=== PATIENT | female | born 2000 | race Caucasian/White ===

== ENCOUNTER 2019-08-02 13:31 | Emergency (ER) | payer OTHER ==
--- NOTE | 2019-08-02 13:37 | ED ---
Abdominal Pain/Female - History of Current Complaint Chief Complaint: EDAbdPain Stated Complaint: ABDOMINAL PAIN PER PT Time Seen by Provider: 08/02/19 13:33 Pain Intensity: 7 Allergies/Adverse Reactions: Allergies Allergy/AdvReac Type Severity Reaction Status Date / Time No Known Allergies Allergy Verified 08/02/19 13:36 PMH/Surg Hx/FS Hx/Imm Hx Infectious Disease History: No Infectious Disease History: Denies: Traveled Outside the [place] in Last 30 Days Physical Exam Vital Signs On Initial Exam: Initial Vitals Temp Pulse Resp BP Pulse Ox 97.7 F 96 16 133/81 99 08/02/19 13:33 08/02/19 13:33 08/02/19 13:33 08/02/19 13:33 08/02/19 13:33 Diagnostics - Vital Signs Vital Signs Temp Pulse Resp BP Pulse Ox 08/02/19 13:33 97.7 F 96 16 133/81 99 - Laboratory Lab Statement: Any lab studies that have been ordered have been reviewed, and results considered in the medical decision making process.
--- NOTE | 2019-08-02 13:53 | ED ---
Abdominal Pain/Female - HPI Summary HPI Summary: The patient is a 18 y/o F presenting to [facility] accompanied by male core composer feeder with a chief complaint of sudden onset right lower quadrant and right flank pain onset three days ago. She reports she had been urinating as normal when the abdominal pain suddenly began. She denies any fevers, nausea, or vomiting with the pain. Currently, the pain is rated 6/10 in severity, but it is aggravated by position specifically if she is sitting upright. She states that this episode is similar to a previous experience she has had where she had an ovarian torsion on the left, but she does note a known right ovarian cyst that has burst before. LNMP: now. PMHx: PCOS, left ovarian torsion with repair. FHx: breast cancer, cardiac disease. Nonsmoker, occasional EtOH, no substance use. Medications reviewed. Allergies noted. - History of Current Complaint Chief Complaint: EDAbdPain Stated Complaint: ABDOMINAL PAIN PER PT Time Seen by Provider: 08/02/19 13:33 Hx Obtained From: Patient Onset/Duration: Sudden Onset, Lasting Days - three, Still Present Timing: Constant Severity Initially: Moderate Severity Currently: Moderate Pain Intensity: 6 Pain Scale Used: 0-10 Numeric Location: Discrete At: RLQ Radiates: Yes Radiates to: Flank - right Character: Sharp Aggravating Factor(s): Other: - positional in sitting upright Alleviating Factor(s): Nothing Associated Signs and Symptoms: Negative: Fever, Nausea, Vomiting Allergies/Adverse Reactions: Allergies Allergy/AdvReac Type Severity Reaction Status Date / Time No Known Allergies Allergy Verified 08/02/19 13:36 PMH/Surg Hx/FS Hx/Imm Hx Endocrine/Hematology History: Denies: Hx Diabetes Cardiovascular History: Denies: Hx Hypercholesterolemia, Hx Hypertension History: Reports: Other Problems/Disorders - ovarian cyst on right, ovarian torsion on left Sensory History: Reports: Hx Contacts or Glasses Opthamlomology History: Reports: Hx Contacts or Glasses - Surgical History Surgical History: Yes Surgery Procedure, Year, and Place: left ovarian torsion repair Infectious Disease History: No Infectious Disease History: Denies: Traveled Outside the [place] in Last 30 Days - Family History Known Family History: Positive: Cardiac Disease, Other - breast cancer - Social History Alcohol Use: Occasionally Hx Substance Use: No Substance Use Type: Reports: None Hx Tobacco Use: No Smoking Status (MU): Never Smoked Tobacco Review of Systems Negative: Fever Positive: Abdominal Pain - right lower quadrant into flank. Negative: Vomiting , Nausea All Other Systems Reviewed And Are Negative: Yes Physical Exam - Summary Physical Exam Summary: VITAL SIGNS: Reviewed. GENERAL: Patient is a well-developed and nourished female who is lying comfortable in the stretcher. Patient is not in any acute respiratory distress. HEAD AND FACE: Normocephalic and atraumatic. EYES: PERRLA, EOMI x 2, No injected conjunctiva. EARS: Hearing grossly intact. Ear canals and tympanic membranes are WNL. MOUTH: Oropharynx within normal limits. NECK: Supple, trachea is midline, no adenopathy, no JVD. CHEST: Symmetric, no tenderness at palpation. LUNGS: Clear to auscultation bilaterally. No wheezing or crackles. CVS: RRR, S1 and S2 present, no murmurs or gallops appreciated. ABDOMEN: Soft, mild right lower quadrant tenderness. No signs of distention. Positive bowel sounds. No rebound, no guarding, and no masses palpated. No abdominal bruit or pulsations. EXTREMITIES: FROM in all major joints, no edema, no cyanosis or clubbing. NEURO: Alert and oriented x 3. No acute neurological deficits. Speech is normal. SKIN: Dry and warm. Triage Information Reviewed: Yes Vital Signs On Initial Exam: Initial Vitals Temp Pulse Resp BP Pulse Ox 97.7 F 96 16 133/81 99 08/02/19 13:33 08/02/19 13:33 08/02/19 13:33 08/02/19 13:33 08/02/19 13:33 Vital Signs Reviewed: Yes Procedures - Sedation Patient Received Moderate/Deep Sedation with Procedure: No Diagnostics - Vital Signs Vital Signs Temp Pulse Resp BP Pulse Ox 08/02/19 13:33 97.7 F 96 16 133/81 99 - Laboratory Result Diagrams: 08/02/19 14:07 08/02/19 14:07 Lab Statement: Any lab studies that have been ordered have been reviewed, and results considered in the medical decision making process. - Ultrasound Pelvis US Ultrasound Interpretation Completed By: Radiologist Summary of Ultrasound Findings: Impression: 1. Trace free fluid in the pelvis. 2. Ovarian doppler signal detected bilaterally. ED physician has reviewed this report. Re-Evaluation - Re-Evaluation First Eval Re-Evaluation Time: 15:50 Change: Improved Comment: She is feeling better after medications. Second Eval Re-Evaluation Time: 17:15 Change: Improved Comment: She is feeling better. We discussed all results and plan for discharge. Abdominal Pain Fem Course/Dx - Course Course Of Treatment: This patient is a 18-year-old female who presents to the emergency department with a complaint of right sided pelvic pain. She reports that she has a history of ovarian cysts, and she feels that one of the cysts ruptured on 07/30/19, and since then the patient has been having pain. She reports that the pain is similar to previous cyst ruptures. Blood work without any significant abnormality. Beta-hCG is negative for . Pelvic ultrasound impression: Trace free fluid in the pelvis. Ovarian Doppler signals detected bilaterally. In the ED course, the patient was given Toradol for the pain. After these medications, the patients pain has significantly improved. Patient declined a pelvic exam. Patient has no WBCs, and CRP is also normal. Therefore, I have low suspicion for appendicitis. I discussed all the findings and test results with the patient. Patient was instructed to return to the emergency room immediately if any of the symptoms return or worsen. They were explained the possibility of an early abdominal pathology which was not detected at this time despite the physical exam and testing. They understand and agree. Abdominal exam before discharge: Soft, NT. No signs of distention. BS present. No rebound, no guarding, and no masses palpated. Patient is alert and oriented and hemodynamically stable. Patient is to follow up with primary care physician in the next 2 to 3 days. Patient agrees and understands. - Diagnoses Provider Diagnoses: Pelvic pain Discharge ED - Sign-Out/Discharge Documenting (check all that apply): Patient Departure - Patient will be discharged home. - Discharge Plan Condition: Stable Disposition: HOME Patient Education Materials: Acute Abdominal Pain (ED) Referrals: [facility] [place] PHYSICIAN REFERRAL [Outside] - 3 Days Teresa Schrader MD [Medical Doctor] - 3 Days Additional Instructions: Follow up with your INTERNET DEVELOPER in 2-3 days concerning today's visit. Follow up with your primary care provider in 2-3 days. Return to the emergency department for any new or worsening symptoms. - Billing Disposition and Condition Condition: STABLE Disposition: Home - Attestation Statements Document Initiated by Scribe: Yes Documenting Scribe: Roma Jorge Provider For Whom Scribe is Documenting (Include Credential): Dr. Nam Roy MD Scribe Attestation: I, Roma Jorge, scribed for Dr. Nam Roy MD on 08/03/19 at 0941. Scribe Documentation Reviewed: Yes Provider Attestation: The documentation as recorded by the Roma duong accurately reflects the service I personally performed and the decisions made by me, Dr. Nam Roy MD Status of Scribe Document: Viewed
[2019-08-02 14:15] LABS: ABS Basophils 0.1 10^3/ul (0-0.2); ABS Eosinophils 0.1 10^3/ul (0-0.6); ABS Lymphocytes 0.9 10^3/ul (1.0-4.8); ABS Monocytes 0.4 10^3/ul (0-0.8); ABS Neutrophils 4.5 10^3/ul (1.5-7.7); Eosinophil % 1.2 %; Hematocrit 41 % (35-47); Hemoglobin 14.2 g/dL (12.0-16.0); Mean Corpuscular HGB Conc 35 g/dL (31-36); Mean Corpuscular Hemoglobin 32 pg (27-31); Mean Corpuscular Volume 94 fL (80-97); Mean Platelet Volume 8.4 fL (7.4-10.4); Platelet Count 296 10^3/uL (150-450); Red Blood Count 4.41 10^6 /uL (3.70-4.87); Red Cell Distribution Width 13 % (10-15); White Blood Count 5.9 10^3/uL (3.5-10.8)
[2019-08-02 14:46] LABS: ALT 13 U/L (7-52); AST 17 U/L (13-39); Albumin 4.1 g/dL (3.2-5.2); Albumin/Globulin Ratio 1.5 (1-3); Alkaline Phosphatase 45 U/L (34-104); Anion Gap 6 mmol/L (2-11); BUN/Creatinine Ratio 15.5 (8-20); Blood Urea Nitrogen 11 mg/dL (6-24); C Reactive Protein 4.22 mg/L (<8.01); CO2 Carbon Dioxide 28 mmol/L (22-32); Calcium 9.5 mg/dL (8.6-10.3); Chloride 104 mmol/L (101-111); Globulin 2.8 g/dL (2-4); Glucose 94 mg/dL (70-100); Sodium 138 mmol/L (135-145); Total Protein 6.9 g/dL (6.4-8.9)
[2019-08-02 14:52] LABS: HCG Pregnancy < 0.60 mIU/mL
[2019-08-02] MEDS ORDERED: Ketorolac INJ* 30 MG/ML 1 ML VIAL IV PUSH ONE (15:41)
[2019-08-02] MEDS ORDERED: Ketorolac *IM* INJ* 60 MG/2 ML VIAL IM ONE (17:00)
[2019-08-02 17:25] VITALS: BP 121/78
== END 2019-08-02 17:33 | disposition home or self-care (01) ==
LOC: ED 13:31
DX: R10.2 Pelvic and perineal pain (principal)
CPT/HCPCS: 36415; 76856; 80053; 83605; 83690; 84702; 85025; 86140; 96372; 99282; J1885

== ENCOUNTER 2019-10-06 09:23 | Emergency (ER) | payer OTHER ==
[2019-10-06] MEDS ORDERED: Ondansetron INJ* 2 MG/ML VIAL IV ONE ×2 (10:01→13:25)
[2019-10-06] MEDS ORDERED: NS 0.9% 1000 ML** 1,000 ML IV ONE (10:01)
[2019-10-06] MEDS ORDERED: Morphine 4 MG/ML VIAL (1 ml) 4 MG/ML VIAL IV ONE ×3 (10:01→13:25)
--- NOTE | 2019-10-06 10:08 | ED ---
Abdominal Pain/Female - HPI Summary HPI Summary: 18-year-old female with a significant past medical history of ovarian cyst and ovarian torsion presents to emergency department today complaining of sudden onset right lower quadrant pain which radiates to her back which began as she was lying in bed yesterday. Patient states her pain began yesterday evening for which she took Tylenol and ibuprofen with minimal relief. Patient states since her pain began yesterday and has become worse and is currently 9 out of 10. Patient denies associated fever, vaginal bleeding, vaginal discharge, nausea, vomiting, diarrhea, pain with urination, abnormal menses. Last menstrual period x one week ago and regular. Patient otherwise feels well and denies any family history of kidney stones or personal history of kidney stones. Surgical and family history is noncontributory. - History of Current Complaint Chief Complaint: EDAbdPain Stated Complaint: SEVERE ABDOMINAL PAIN PER PT Time Seen by Provider: 10/06/19 09:53 Hx Obtained From: Patient Onset/Duration: Sudden Onset Timing: Constant Severity Initially: Moderate Severity Currently: Severe Pain Intensity: 8 Pain Scale Used: 0-10 Numeric Location: Discrete At: RLQ Radiates: Yes Radiates to: Flank Character: Sharp, Cramping Alleviating Factor(s): Position, OTC Analgesics Associated Signs and Symptoms: Positive: Back Pain. Negative: Diaphoresis, Fever, Cough, Chest Pain, Constipation, Blood in Stool, Urinary Symptoms, Vaginal Bleeding, Vaginal Discharge, Nausea, Vomiting, Diarrhea Allergies/Adverse Reactions: Allergies Allergy/AdvReac Type Severity Reaction Status Date / Time No Known Allergies Allergy Verified 10/06/19 10:00 Home Medications: Home Medications Levonorgestrel-Ethin Estradiol [Sronyx] 1 tab PO DAILY 10/06/19 [History Confirmed 10/06/19] PMH/Surg Hx/FS Hx/Imm Hx Endocrine/Hematology History: Denies: Hx Diabetes Cardiovascular History: Denies: Hx Hypercholesterolemia, Hx Hypertension History: Reports: Other Problems/Disorders - ovarian cyst on right, ovarian torsion on left Sensory History: Reports: Hx Contacts or Glasses Opthamlomology History: Reports: Hx Contacts or Glasses - Surgical History Surgery Procedure, Year, and Place: left ovarian torsion repair - Immunization History Immunizations Up to Date: Yes Infectious Disease History: No Infectious Disease History: Denies: Traveled Outside the [place] in Last 30 Days - Family History Known Family History: Positive: Cardiac Disease, Other - breast cancer - Social History Alcohol Use: Occasionally Hx Substance Use: No Substance Use Type: Reports: None Hx Tobacco Use: No Smoking Status (MU): Never Smoked Tobacco Review of Systems Constitutional: Negative Eyes: Negative ENT: Negative Cardiovascular: Negative Respiratory: Negative Positive: Abdominal Pain. Negative: Vomiting, Diarrhea, Nausea Genitourinary: Negative Musculoskeletal: Negative Skin: Negative Neurological: Negative Psychological: Normal All Other Systems Reviewed And Are Negative: Yes Physical Exam - Summary Physical Exam Summary: Patient is in no acute distress. Inspection the abdomen reveals no ecchymosis or masses. Auscultation reveals normoactive bowel sounds. Palpation of the abdomen reveals tenderness in the right lower quadrant. There is pain at McBurney's point. Negative Ruth's, psoas, obturator, Rovsing sign. Negative CVA tenderness. No rigidity or rebound tenderness is noted. No peritoneal signs. Patient tolerated the exam well. Triage Information Reviewed: Yes Vital Signs On Initial Exam: Initial Vitals Temp Pulse Resp BP Pulse Ox 98.6 F 111 18 133/85 97 10/06/19 09:26 10/06/19 09:26 10/06/19 09:26 10/06/19 09:26 10/06/19 09:26 Vital Signs Reviewed: Yes Appearance: Positive: Well-Appearing, No Pain Distress, Well-Nourished Skin: Positive: Warm, Skin Color Reflects Adequate Perfusion Procedures - Sedation Patient Received Moderate/Deep Sedation with Procedure: No Diagnostics - Vital Signs Vital Signs Temp Pulse Resp BP Pulse Ox 10/06/19 09:52 103 135/86 95 10/06/19 09:51 101 95 10/06/19 09:26 98.6 F 111 18 133/85 97 - Laboratory Result Diagrams: 10/06/19 10:07 10/06/19 10:07 Lab Statement: Any lab studies that have been ordered have been reviewed, and results considered in the medical decision making process. Abdominal Pain Fem Course/Dx - Course Course Of Treatment: Patient was evaluated in the emergency department today for right lower quadrant abdominal pain. Vitals noted and stable. Patient afebrile. Labs returned showing mild leukocytosis with awhite blood cell count 11.8 with a neutrophilic shift. There are no significant electrolyte abnormalities or evidence of anemia. test negative. Urinalysis appears contaminated. patient was given 3 doses of 4 mg of morphine for pain . An ultrasound of the appendix was done which was unable to visualize the appendix. Transvaginal ultrasound was done to evaluate possible ovarian torsion versus ovarian cyst which showed: although bilateral ovarian Doppler signals detected, the right ovary is enlarged and slightly heterogeneous in appearance. Intermittent torsion is not excluded in this high-risk patient. CT of the abdomen and pelvis was done which shows no evidence of appendicitis however there is a noted right greater than left ovarian volume asymmetry. OB/ PRINCIPAL PLANNER, Dr. Schrader was consulted at 1155 and agreed to come and evaluate the patient in the emergency department. Dr. Schrader presented to the emergency department at 1530 and examined the patient. She believed it is likely the patient is not experiencing intermittent torsion however she may be experiencing symptoms of a ruptured ovarian cyst. She instructed the patient to be discharged to follow-up with Dr. Schrader in her office in 2-3 days as an outpatient. - Diagnoses Differential Diagnosis: Positive: Appendicitis, Ectopic , Ovarian Cyst , Pelvic Inflammatory Disease, Other - Ovarian torsion, intermittent ovarian torsion. Provider Diagnoses: Abdominal pain, Ruptured ovarian cyst - Provider Notifications Discussed Care Of Patient With: Teresa Schrader - presented to the emergency department at 1530 to evaluate the patient. Believed the patient's symptoms are likely due to a ruptured ovarian cyst and not intermittent ovarian torsion. She agreed to see the patient in her office as an outpatient in 2-3 days. Time Discussed With Above Provider: 11:55 Discharge ED - Sign-Out/Discharge Documenting (check all that apply): Patient Departure - Discharge Plan Condition: Stable Disposition: HOME Patient Education Materials: Ruptured Ovarian Cyst (ED) Referrals: Teresa Schrader MD [Medical Doctor] - 2 Days No Primary Care Phys,[facility] [Primary Care Provider] - Additional Instructions: You were seen in the emergency department today due to right lower quadrant pain. An ultrasound as well as a CT scan were done which showed no evidence of ovarian torsion or appendicitis. It is likely your symptoms are due to a ruptured ovarian cyst. Due to the fact that this still may be intermittent torsion of the ovary please see Dr. Schrader in her office in 2-3 days for further evaluation and management. Please return to the emergency department immediately if you develop any new or worsening symptoms. You may take ibuprofen 600 mg every 6 hours as needed for pain. You may alternate this with Tylenol 650 mg every 6 hours as needed for pain. - Billing Disposition and Condition Condition: STABLE Disposition: Home
[2019-10-06 10:15] LABS: ABS Lymphocytes 0.7 10^3/ul (1.0-4.8); ABS Monocytes 0.1 10^3/ul (0-0.8); ABS Neutrophils 10.9 10^3/ul (1.5-7.7); Eosinophil % 0.2 %; Hematocrit 41 % (35-47); Hemoglobin 14.1 g/dL (12.0-16.0); Lymphocyte % 5.9 %; Mean Corpuscular HGB Conc 35 g/dL (31-36); Mean Corpuscular Hemoglobin 32 pg (27-31); Mean Corpuscular Volume 93 fL (80-97); Mean Platelet Volume 8.7 fL (7.4-10.4); Platelet Count 306 10^3/uL (150-450); Red Blood Count 4.37 10^6 /uL (3.70-4.87); Red Cell Distribution Width 13 % (10-15); White Blood Count 11.8 10^3/uL (3.5-10.8)
[2019-10-06 10:37] LABS: ALT 13 U/L (7-52); AST 18 U/L (13-39); Albumin 4.5 g/dL (3.2-5.2); Albumin/Globulin Ratio 1.5 (1-3); Alkaline Phosphatase 60 U/L (34-104); Anion Gap 8 mmol/L (2-11); BUN/Creatinine Ratio 18.5 (8-20); Blood Urea Nitrogen 12 mg/dL (6-24); C Reactive Protein 6.38 mg/L (<8.01); CO2 Carbon Dioxide 26 mmol/L (22-32); Calcium 9.4 mg/dL (8.6-10.3); Chloride 102 mmol/L (101-111); EGFR African American 140.6 (>60); EGFR Non-African American 116.2 (>60); Glucose 118 mg/dL (70-100); Potassium 3.6 mmol/L (3.5-5.0); Sodium 136 mmol/L (135-145); Total Protein 7.5 g/dL (6.4-8.9)
[2019-10-06 10:44] LABS: HCG Pregnancy < 0.60 mIU/mL
[2019-10-06] MEDS ORDERED: Iohexol 300* (CONTRAST) 10 ML SDV IV ONE (11:24)
[2019-10-06 15:58] LABS: Urine Appearance Clear; Urine Bilirubin Negative (Negative); Urine Blood 1+ (Negative); Urine Color Straw; Urine Glucose Negative (Negative); Urine Ketones 1+ (Negative); Urine Nitrite Negative (Negative); Urine Protein Negative (Negative); Urine Specific Gravity 1.034 (1.010-1.030); Urine Urobilinogen Negative (Negative)
[2019-10-06 16:07] LABS: Urine Bacteria Absent (Absent); Urine Red Blood Cell 1+(3-5/hpf) (Absent); Urine Squamous Epithelial Cell Present (Absent); Urine White Blood Cell Absent (Absent)
[2019-10-06 16:21] VITALS: BP 123/82
--- NOTE | 2019-10-06 20:18 | CONS ---
CONSULTATION REPORT: DATE OF CONSULT: 10/06/19 - EMERGENCY DEPT REASON FOR CONSULT: Right lower quadrant pain. HISTORY OF PRESENT ILLNESS: The patient is a 18-year-old 0, who comes in with less than 24 hours of right lower quadrant pain. The patient reports history of intermittent right lower quadrant pain and in fact was seen in August of 2019 with similar complaint. The patient has history of ruptured ovarian cyst and approximately 3 years ago had an episode of ovarian torsion, required surgery and at that point had her ovary tagged down to the peritoneum to prevent re-torsion. The patient has a history of polycystic ovarian syndrome and for this takes an oral contraceptive combination pill. The patient notes that she did miss a dosing of her oral contraceptive therapy. On pelvic ultrasound today, the right and left ovaries are consistent with polycystic ovaries. They have adequate blood flow and both normal arterial and venous waveforms. A CT scan was performed in addition, which showed a normal- appearing appendix. The patient notes that at present her pain has reduced in severity and denies any nausea, vomiting, or dysuria at present. PAST MEDICAL HISTORY: Noted for polycystic ovarian syndrome. PAST SURGICAL HISTORY: In 2017, had a laparoscopic right ovarian torsion reduction and tagging of the right ovary to the parietal peritoneum. 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 Current partner x1 plus year, stable monogamous. REVIEW OF SYSTEMS: Negative for fevers. Positive for anorexia. Negative for weight change. : Denies abnormal discharge. Denies current menstrual flow. Positive sexual activity, but denies any change in partners. GI: No diarrhea. No constipation. No change in bowel habits. PHYSICAL EXAM: Vital Signs: Temp 98.6, blood pressure 123/82, pulse 79, respiratory rate 20. Constitutional: Pleasant female, alert and oriented, in no apparent distress. HEENT: Supple, nontender. No masses. No adenopathy. Abdomen is nontender. No masses. No hepatosplenomegaly appreciated. No rebound and no guarding. Extremities are nontender. No edema. Pelvic Exam: External genitalia with normal appearance. Vaginal Exam: Normally palpated mucosa. Bimanual Exam: No cervical motion tenderness. Uterus is anteverted, nontender. Adnexa without masses and nontender. LABORATORY DATA: WBC 11.8, hemoglobin 14.1, hematocrit 41, platelet count 306. Urine specific gravity is 1.034, urine ketones +1, blood +1, negative nitrites, negative leukocyte, squamous epithelial cells present, bacteria absent. Chemistries: AST and ALT 18 and 13, creatinine 0.625, glucose 118. Beta quant is less than 0.6. ASSESSMENT AND PLAN: The patient is a 18-year-old with acute onset of right lower quadrant pain that has improved with IV morphine and time. The patient has normal imaging both ultrasound and CT scan imaging and no evidence of an acute abdomen. Clinically, at this point, I recommend observation. The patient can use ibuprofen for anti-inflammatory effect and if the patient has recurrent abdominal pain, she is to return to the emergency room. We reviewed acute abdomen precautions and in the meantime, we will obtain old records from operative procedure in 2017. The patient will need followup in 1 week's time with my office and will be contacted by my office for this followup plan. [id number]/CPS #: [id number] RG
== END 2019-10-06 16:19 | disposition home or self-care (01) ==
LOC: ED 09:23
DX: R10.31 Right lower quadrant pain (principal); E28.2 Polycystic ovarian syndrome; J98.11 Atelectasis
CPT/HCPCS: 36415; 74177; 76705; 76830; 80053; 81003; 81015; 83690; 84702; 85025; 86140; 96361; 96374; 96375; 96376; 99283; J2270; J2405; Q9967

== ENCOUNTER 2019-10-08 13:12 | Observation (INO) | payer OTHER ==
[2019-10-08] MEDS ORDERED: NS 0.9% 1000 ML** 1,000 ML IV ONE (16:47)
[2019-10-08] MEDS ORDERED: Morphine 4 MG/ML VIAL (1 ml) 4 MG/ML VIAL IV ONE (16:48)
--- NOTE | 2019-10-08 16:52 | ED ---
GI/ HPI - HPI Summary HPI Summary: 18 year old female presents with abd pain for the past 3 days. She was seen here 2 days ago and was told that she has likely ruptured cyst. She has history of ovarian torsion on the right side and had the ovary sutured down per patient. she states that pain is similar to ovarian torsion in past. Pain has been intermittent but has only slightly decreased in intensity. she states she is not able to ambulate due to the pain. She states it radiates down her leg. she admits to a decrease in appetite. She admits to nausea but no vomiting. She denies any fevers. No vaginal discharge. She is on control. Has history of a PCOS. No previous abdominal surgeries besides ovarian torsion. Was seen by OB and felt that was a ruptured cyst. - History of Current Complaint Chief Complaint: EDAbdPain Time Seen by Provider: 10/08/19 16:41 Stated Complaint: RIGHT LOWER ABD PAIN PER PT Pain Intensity: 8 - Allergy/Home Medications Allergies/Adverse Reactions: Allergies Allergy/AdvReac Type Severity Reaction Status Date / Time No Known Allergies Allergy Verified 10/06/19 10:00 PMH/Surg Hx/FS Hx/Imm Hx Endocrine/Hematology History: Denies: Hx Diabetes Cardiovascular History: Denies: Hx Hypercholesterolemia, Hx Hypertension History: Reports: Other Problems/Disorders - ovarian cyst on right, ovarian torsion on left Denies: Hx Renal Disease Sensory History: Reports: Hx Contacts or Glasses Opthamlomology History: Reports: Hx Contacts or Glasses - Surgical History Surgery Procedure, Year, and Place: left ovarian torsion repair Infectious Disease History: No Infectious Disease History: Denies: Traveled Outside the [place] in Last 30 Days - Family History Known Family History: Positive: Cardiac Disease, Other - breast cancer - Social History Alcohol Use: Occasionally Hx Substance Use: No Substance Use Type: Reports: None Hx Tobacco Use: No Smoking Status (MU): Never Smoked Tobacco Review of Systems Negative: Fever Negative: Chest Pain Negative: Shortness Of Breath Positive: Abdominal Pain All Other Systems Reviewed And Are Negative: Yes Physical Exam Triage Information Reviewed: Yes Vital Signs On Initial Exam: Initial Vitals Temp Pulse Resp BP Pulse Ox 98.1 F 119 16 124/83 99 10/08/19 13:44 10/08/19 13:44 10/08/19 13:44 10/08/19 13:44 10/08/19 13:44 Vital Signs Reviewed: Yes Appearance: Positive: Well-Appearing Skin: Positive: Warm, Dry Head/Face: Positive: Normal Head/Face Inspection Eyes: Positive: Normal, Conjunctiva Clear ENT: Positive: Pharynx normal Respiratory/Lung Sounds: Positive: Clear to Auscultation, Breath Sounds Present Cardiovascular: Positive: Normal, RRR Abdomen Description: Positive: Soft, Other: - tenderness in RLQ Bowel Sounds: Positive: Present Musculoskeletal: Positive: Normal Neurological: Positive: Normal Psychiatric: Positive: Normal Procedures - Sedation Patient Received Moderate/Deep Sedation with Procedure: No Diagnostics - Vital Signs Vital Signs Temp Pulse Resp BP Pulse Ox 10/08/19 13:44 98.1 F 119 16 124/83 99 - Laboratory Result Diagrams: 10/08/19 17:01 10/08/19 17:01 Lab Statement: Any lab studies that have been ordered have been reviewed, and results considered in the medical decision making process. - Ultrasound No standard instances Ultrasound Interpretation Completed By: Radiologist Summary of Ultrasound Findings: IMPRESSION: 1. THE RIGHT OVARY IS ENLARGED AND EDEMATOUS WITHOUT APPRECIABLE FLOW ON COLOR SPECTRAL DOPPLER IMAGING, CONCERNING FOR RIGHT OVARIAN TORSION GIVEN THE CLINICAL HISTORY OF PAIN. PRELIMINARY FINDINGS WERE DISCUSSED WITH YOLY ARNOLD THE EMERGENCY DEPARTMENT AT APPROXIMATELY 5:44 PM ON OCTOBER 08, 2019. 2. BILATERAL PARAOVARIAN CYST. 3. THERE ARE MULTIPLE FOLLICLES IN THE PERIPHERY OF THE LEFT OVARY. THE DISTRIBUTION, WHILE NONSPECIFIC, THEY'RE SUGGESTIVE OF POLYCYSTIC OVARIAN SYNDROME IN THE CORRECT CLINICAL SETTING. GIGU Course/Dx - Course Course Of Treatment: 18 year old female presents with abd pain for the past 3 days. She was seen here 2 days ago and was told that she has likely ruptured cyst. She has history of ovarian torsion on the right side and had the ovary sutured down per patient. she states that pain is similar to ovarian torsion in past. Pain has been intermittent but has only slightly decreased in intensity. she states she is not able to ambulate due to the pain. She states it radiates down her leg. she admits to a decrease in appetite. She admits to nausea but no vomiting. She denies any fevers. No vaginal discharge. She is on control. Has history of a PCOS. No previous abdominal surgeries besides ovarian torsion. Was seen by OB and felt that was a ruptured cyst. On exam tenderness in RLQ. No rebound. wbc 16. u/s shows ovarian torison. dr campa will take to OR. - Diagnoses Differential Diagnoses - Female: Ovarian Cyst, Ovarian Torsion, Urinary Tract Infection Provider Diagnoses: Ovarian torsion Discharge ED - Sign-Out/Discharge Documenting (check all that apply): Patient Departure - Discharge Plan Condition: Stable Disposition: ADMITTED TO [facility] Referrals: No Primary Care Phys,NOPCP [Primary Care Provider] - - Billing Disposition and Condition Condition: STABLE Disposition: Admitted to [facility]
[2019-10-08 17:12] LABS: ABS Basophils 0.1 10^3/ul (0-0.2); ABS Lymphocytes 1.1 10^3/ul (1.0-4.8); ABS Monocytes 1.1 10^3/ul (0-0.8); ABS Neutrophils 13.9 10^3/ul (1.5-7.7); Eosinophil % 0.3 %; Hematocrit 41 % (35-47); Lymphocyte % 6.9 %; Mean Corpuscular HGB Conc 34 g/dL (31-36); Mean Corpuscular Hemoglobin 32 pg (27-31); Mean Corpuscular Volume 94 fL (80-97); Mean Platelet Volume 8.6 fL (7.4-10.4); Nucleated Red Blood Cells % 0.1; Platelet Count 306 10^3/uL (150-450); Red Blood Count 4.37 10^6 /uL (3.70-4.87); Red Cell Distribution Width 13 % (10-15); White Blood Count 16.2 10^3/uL (3.5-10.8)
[2019-10-08 17:27] LABS: Albumin 4.5 g/dL (3.2-5.2); Albumin/Globulin Ratio 1.6 (1-3); BUN/Creatinine Ratio 12.3 (8-20); C Reactive Protein 65.5 mg/L (<8.01); Calcium 9.6 mg/dL (8.6-10.3); EGFR African American 140.6 (>60); EGFR Non-African American 116.2 (>60); Globulin 2.9 g/dL (2-4); Potassium 3.7 mmol/L (3.5-5.0); Total Bilirubin 0.8 mg/dL (0.2-1.0); Total Protein 7.4 g/dL (6.4-8.9)
[2019-10-08] MEDS ORDERED: Sodium Citrate/Citric Acid* 15 ML UDC PO ONE (18:38)
[2019-10-08] MEDS ORDERED: Dexamethasone IV* 4 MG/ML 1 ML (4 MG) IV SLOW PU ONE (18:38)
[2019-10-08] MEDS ORDERED: Buffered Lidocaine 1% SYRIN* 1 ML/SYRINGE INTRADERM ONE (18:38)
[2019-10-08] MEDS ORDERED: Famotidine IV* 10 MG/ML 2 ML (20 mg) IV ONE (18:38)
[2019-10-08 18:42] LABS: Urine Appearance Clear; Urine Bilirubin Negative (Negative); Urine Blood 1+ (Negative); Urine Color Yellow; Urine Glucose Negative (Negative); Urine Ketones 2+ (Negative); Urine Nitrite Negative (Negative); Urine Protein Negative (Negative); Urine Specific Gravity 1.009 (1.010-1.030); Urine Urobilinogen Negative (Negative)
[2019-10-08 18:43] LABS: Urine Bacteria Absent (Absent); Urine Red Blood Cell 1+(3-5/hpf) (Absent); Urine Squamous Epithelial Cell Present (Absent); Urine White Blood Cell Absent (Absent)
[2019-10-08] MEDS ORDERED: Ketorolac INJ* 30 MG/ML 1 ML VIAL IV PRN ×2 (18:43→21:54)
[2019-10-08] MEDS ORDERED: Naloxone* 0.4 MG/ML 1 ML VIAL IV PRN ×2 (18:43→21:54)
[2019-10-08] MEDS ORDERED: oxyCODONE/Acetamin 5/325 MG* TAB PO PRN ×2 (18:43→21:54)
[2019-10-08] MEDS ORDERED: DiMENhydriNATE IV* 50 MG/ML VIAL IV PUSH PRN ×2 (18:43→21:54)
[2019-10-08] MEDS ORDERED: fentaNYL* 50 MCG/ML 2 ML VIAL (100 MCG VIAL) IV PRN ×2 (18:43→21:54)
[2019-10-08] MEDS ORDERED: HYDROcodone/ACETAMIN 5-325 MG* 1 TAB PO PRN ×2 (18:43→21:54)
[2019-10-08] MEDS ORDERED: Bupivacaine 0.25% SDV* 30 ML ONE (18:46)
[2019-10-08] MEDS ORDERED: Lactated Ringers 1000 ML Bag* 1,000 ML IV SCH (19:00)
--- NOTE | 2019-10-08 19:01 | HP ---
H&P (Free Text) History and Physical: Pt was seen in the ED 2 days ago with RLQ pain and her ovary was slightly enlarged but with positive blood flow and similar to prior sono in August. By the time of discharge her pain had also improved. Since then the pain has returned and been more constant. It continues to be in the RLQ. it is severe enough she feels she can't walk as it shoots down her legs. She has a h/o PCOS with ruptured ovarian cysts and R ovarian torsion with surgery to reduce the ovarian torsion and "tack" it to the abdominal wall about 3yrs ago. She reports minimal appetite over the past few days and minimal nausea. Meds: oral contraceptives NKDA ROS: +pain, no bleeding, no unusual discharge, no dysuria, +nausea, no vomiting , no diarrhea or constipation, decreased appetite. Otherwise negative. 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 Monogamous relationship with same partner >1yr. Denies hx STIs Soc Hx: Denies tobacco or illicit drug use. Occasional alcohol use. Here for college, lives in the dorm. Exam: Appears in mild painful distress Abd: soft, moderate tenderness with guarding in RLQ, palpation of LLQ elicits pain in RLQ Ext: no edema Pelvic exam declined Laboratory Results - last 24 hr 10/08/19 10/08/19 10/08/19 17:01 17:01 17:01 WBC 16.2 H RBC 4.37 Hgb 14.0 Hct 41 MCV 94 MCH 32 H MCHC 34 RDW 13 Plt Count 306 MPV 8.6 Neut % (Auto) 85.6 Lymph % (Auto) 6.9 Lynn % (Auto) 6.8 Eos % (Auto) 0.3 Baso % (Auto) 0.4 Absolute Neuts (auto) 13.9 H Absolute Lymphs (auto) 1.1 Absolute Monos (auto) 1.1 H Absolute Eos (auto) 0.0 Absolute Basos (auto) 0.1 Absolute Nucleated RBC 0.0 Nucleated RBC % 0.1 Sodium 137 Potassium 3.7 Chloride 102 Carbon Dioxide 25 Anion Gap 10 BUN 8 Creatinine 0.65 Est GFR ( Amer) 140.6 Est GFR (Non-Af Amer) 116.2 BUN/Creatinine Ratio 12.3 Glucose 87 Lactic Acid 0.9 Calcium 9.6 Total Bilirubin 0.80 AST 14 ALT 12 Alkaline Phosphatase 57 C-Reactive Protein 65.50 H Total Protein 7.4 Albumin 4.5 Globulin 2.9 Albumin/Globulin Ratio 1.6 Lipase 28 Urine Color Urine Appearance Urine pH Ur Specific Madison Urine Protein Urine Ketones Urine Blood Urine Nitrate Urine Bilirubin Urine Urobilinogen Ur Leukocyte Esterase Urine WBC (Auto) Urine RBC (Auto) Ur Squamous Epith Cells Urine Bacteria Urine Glucose 10/08/19 18:08 WBC RBC Hgb Hct MCV MCH MCHC RDW Plt Count MPV Neut % (Auto) Lymph % (Auto) Lynn % (Auto) Eos % (Auto) Baso % (Auto) Absolute Neuts (auto) Absolute Lymphs (auto) Absolute Monos (auto) Absolute Eos (auto) Absolute Basos (auto) Absolute Nucleated RBC Nucleated RBC % Sodium Potassium Chloride Carbon Dioxide Anion Gap BUN Creatinine Est GFR ( Amer) Est GFR (Non-Af Amer) BUN/Creatinine Ratio Glucose Lactic Acid Calcium Total Bilirubin AST ALT Alkaline Phosphatase C-Reactive Protein Total Protein Albumin Globulin Albumin/Globulin Ratio Lipase Urine Color Yellow Urine Appearance Clear Urine pH 7.0 Ur Specific Madison 1.009 L Urine Protein Negative Urine Ketones 2+ A Urine Blood 1+ A Urine Nitrate Negative Urine Bilirubin Negative Urine Urobilinogen Negative Ur Leukocyte Esterase Negative Urine WBC (Auto) Absent Urine RBC (Auto) 1+(3-5/hpf) A Ur Squamous Epith Cells Present A Urine Bacteria Absent Urine Glucose Negative A:18yo with suspected R ovarian torsion P: Laparoscopy, possible R oophorectomy, possible R cystectomy. The need for surgery was discussed with the patient and her mother and she is agreeable. She understands the potential need to remove her ovary completely. Risks of surgery reviewed and consent signed.
[2019-10-08] MEDS ORDERED: Sodium Citrate/Citric Acid* 15 ML UDC ONE (19:18)
[2019-10-08] MEDS ORDERED: Dexamethasone IV* 4 MG/ML 1 ML (4 MG) ONE (19:18)
[2019-10-08] MEDS ORDERED: Famotidine IV* 10 MG/ML 2 ML (20 mg) ONE (19:18)
[2019-10-08] MEDS ORDERED: fentaNYL* 50 MCG/ML 2 ML VIAL (100 MCG VIAL) ONE ×2 (19:35→20:56)
[2019-10-08] MEDS ORDERED: Succinylcholine* 20 MG/ML 10 ML VIAL ONE (19:51)
[2019-10-08] MEDS ORDERED: Propofol* 10 MG/ML 20 ML BTL ONE (19:51)
[2019-10-08] MEDS ORDERED: Lidocaine 2% PF * 5 ML VIAL ONE (19:51)
[2019-10-08] MEDS ORDERED: Midazolam* 1 MG/ML 2 ML VIAL (2 MG) ONE (19:56)
[2019-10-08] MEDS ORDERED: Ketorolac INJ* 30 MG/ML 1 ML VIAL ONE (20:06)
[2019-10-08] MEDS ORDERED: Rocuronium* 10 MG/ML VIAL ONE (20:08)
[2019-10-08] MEDS ORDERED: Phenylephrine 40 MCG/ML SYRINGE ONE (20:16)
[2019-10-08] MEDS ORDERED: Ondansetron INJ* 2 MG/ML VIAL ONE (20:49)
[2019-10-08] MEDS ORDERED: Sugammadex * 200 MG/2 ML VIAL IV PUSH ONE (21:19)
[2019-10-08] MEDS ORDERED: Ibuprofen TAB* 600 MG PO PRN (22:33)
[2019-10-08] MEDS ORDERED: Acetaminophen TAB* 325 MG PO PRN (22:33)
[2019-10-08] MEDS ORDERED: oxyCODONE TAB* 5 MG TAB PO PRN (22:38)
[2019-10-08] MEDS: Lactated Ringers 1000 ML Bag* 1,000 ML IV SCH (23:05)
--- NOTE | 2019-10-09 02:31 | OP ---
DATE OF OPERATION: 10/08/19 - ROOM #332 DATE OF : 89 SURGEON: Riri Chaney MD SENIOR SALES OPERATIONS ANALYST: Dr. Schrader. ANESTHESIA: General endotracheal anesthesia. PRE-OP DIAGNOSIS: Right ovarian torsion. POST-OP DIAGNOSIS: Right ovarian torsion. OPERATIVE PROCEDURE: Laparoscopic right salpingo-oophorectomy FINDINGS: Enlarged, edematous, and necrotic right ovary and tube. Normal appearing left ovary and tube, uterus, appendix, bowel, and liver. SPECIMENS: Right tube and ovary. FLUIDS: Crystalloid. DRAINS: 400 mL of clear urine. DESCRIPTION OF PROCEDURE: After informed consent was signed, the patient was taken to the operating room where she was given general anesthesia that was found to be adequate. She was prepped and draped in the dorsal lithotomy position with Edmond stirrups. Time-out was performed. A Ovalle catheter was placed into her bladder and a sterile specimen was collected to rule out urinary tract infection. A speculum was then placed into the vagina to expose the cervix. Anterior lip of the cervix was grasped with a single-tooth tenaculum and the Rare Pink manipulator was inserted into the cervix. Gloves were then changed and attention was turned to the abdomen. The infraumbilical fold was grasped and a 10-mm incision was made with a scalpel. The incision was carried down to the underlying layer of fascia with blunt dissection. The fascia was grasped and tented up and incised in the midline. The incision was extended with blunt pressure. The peritoneum was identified and entered with blunt pressure. The trocar was then inserted. The camera was inserted and entrance to the abdominal cavity was confirmed. Initial inspection of the abdomen was done. Then, 2 lateral ports were placed 5 mm in length with direct visualization. Next, attention was turned to the right ovary and tube, which was found to be significantly enlarged and torsed at least 3 times. This was gently untorsed. The LigaSure was then used to clamp, cauterize and cut through the infundibulopelvic ligament, the tube and the utero-ovarian ligament until was detached. Good hemostasis was noted along the length of the pedicle. The camera was then switched to a 5 mm camera, inserted into the lateral port and a 10 mm EndoCatch bag was inserted through the umbilical port. The ovary was placed into the bag. Although the whole tube was unable to be pushed into the bag, most of it was inside the bag, so was closed and brought up through the umbilical incision. The trocar and port were then removed and edges of the bag were grasped and slowly the ovarian and tubal tissue was morcellated from the bag until the bag can completely be removed. The camera was placed back into the abdominal cavity and a final portion of tube that had fallen out was removed through the umbilical port with direct visualization. Attention was then turned to the pelvis again, which was irrigated and suctioned. The pedicle was once gain noted to be hemostatic. Pressure was decreased. The patient was taken out of Trendelenburg. Good hemostasis was continued to be noted. The lateral ports were removed under direct visualization. The umbilical port was then removed. The abdomen was desufflated and the incisions were closed with 4-0 Vicryl in a running subcuticular fashion for the umbilical incision and a vertical mattress suture for the lateral incision. Surgical glue was then placed and they were covered with Steri-Strips. The patient was cleaned. The Hulka manipulator was removed. She was placed back in the supine position, awakened from anesthesia and moved to the recovery room in stable condition. [id number]/CPS #: [id number]
[2019-10-09 05:37] LABS: ABS Lymphocytes 0.6 10^3/ul (1.0-4.8); ABS Monocytes 0.6 10^3/ul (0-0.8); ABS Neutrophils 13.6 10^3/ul (1.5-7.7); Hematocrit 36 % (35-47); Hemoglobin 12.4 g/dL (12.0-16.0); Lymphocyte % 4.2 %; Mean Corpuscular HGB Conc 35 g/dL (31-36); Mean Corpuscular Hemoglobin 33 pg (27-31); Mean Corpuscular Volume 94 fL (80-97); Mean Platelet Volume 9.1 fL (7.4-10.4); Platelet Count 237 10^3/uL (150-450); Red Cell Distribution Width 13 % (10-15); White Blood Count 14.8 10^3/uL (3.5-10.8)
[2019-10-09] MEDS: Lactated Ringers 1000 ML Bag* 1,000 ML IV SCH (07:04)
[2019-10-09] MEDS ORDERED: Influenza VAC *QUAD* 2019-20* 0.5 ML SYRINGE IM ONE (09:00)
[2019-10-09 11:13] VITALS: BP 128/62
--- NOTE | 2019-10-09 12:52 | PN ---
Progress Note - Progress Note Date of Service: 10/09/19 Note: S: Pt is a 18 y/o s/p LSC Right salpingo oophorectomy secondary to ovarian torsion. Doing well this AM, tolerating regular diet, up and ambulating, voiding spontaneously, pain well controlled with PO pain medications, AVSS, afebrile. O: AVSS, afebrile, hemodynamically stable Gen: nad, aaox3 CV: RRR Pulm: CTABL Abd: soft, nd, nttp, no rebound no guarding Incisions: c/d/i Ext: warm, nttp A/P: 18 y/o s/p LSC RSO 2/2 ovarian torsion: - Doing well post operatively - Meeting all post operative goals - AVSS, afebrile - Pain well controlled with PO pain meds - Tolerating regular diet - Voiding spontaneously, passing flatus - Stable for discharge home - F/U in outpatient setting in 1 week for incision check Nicholas Lora DO [facility]
--- NOTE | 2019-10-09 12:54 | DS ---
DISCHARGE SUMMARY Date of discharge 10/09/2019 Admission Diagnosis - Ovarian Torsion Discharge Diagnosis - Same, s/p Laparoscopic Right Salpingoophorectomy Complications - none Consults - none HPI and Hospital Course:Pt was seen in the ED 2 days prior to admission on 10/08 with RLQ pain and her ovary was slightly enlarged but with positive blood flow and similar to prior sono in August. By the time of discharge her pain had also improved. Since then the pain returned and became more constant. It continued to be in the RLQ. It was severe enough that she felt she couldn't walk as it shoots down her legs. She has a h/o PCOS with ruptured ovarian cysts and R ovarian torsion with surgery to reduce the ovarian torsion and "tack" it to the abdominal wall about 3yrs ago. She reports minimal appetite over the past few days and minimal nausea prior to admission on 10/08. Taken to the OR for Laparoscopy and Right salpingoophorectmy for suspect right ovarian torsion. Procedure went well and was uncomplicated. Pt did well post operatively. Meeting all goals and criteria for discharge on the morning of Post Op day #1. Meds: oral contraceptives - No changes NKDA ROS: pain well controlled with PO pain medicatiuons, no bleeding, no unusual discharge, no dysuria, no nausea, no vomiting, no diarrhea or constipation. PSH: laparoscopy with reduction of R ovarian torsion PMH: PCOS [employer] Hx: PCOS. Monogamous relationship with same partner >1yr. Denies hx STIs Soc Hx: Denies tobacco or illicit drug use. Occasional alcohol use. Here for college, lives in the dorm. Exam: Gen: nad, aaox3 CV: RRR Pulm: CTABL Abd: soft, nttp, no rebound, no guarding Incisions: c/d/i Ext: no edema Discharge Medications Motrin, Tylenol and PRN Oxycodone for pain control Continue OCP's as prescribed Prognosis: Excellent Discharge condition: Good Disposition: Home Nicholas Lora, OBGYN
== END 2019-10-09 14:15 | disposition home or self-care (01) ==
LOC: ED 13:12 → OR 21:53 → SSU 23:14
PROVIDERS: ADMIT Obstetrics & Gynecology; ATTEND Obstetrics & Gynecology
DX: N83.511 Torsion of right ovary and ovarian pedicle (principal); R10.31 Right lower quadrant pain; Z87.42 Personal history of other diseases of the female genital tract; Z79.3 Long term (current) use of hormonal contraceptives; Z23 Encounter for immunization
CPT/HCPCS: 36415; 76830; 80053; 81003; 81015; 83605; 83690; 85025; 86140; 87086; 88305; 90471; 90686; 96361; 96374; 99284; A9270-GY; G0008; G0378; J0330; J1100; J1885; J2250; J2270; J2405; J2704; J3010; J3490